=== PATIENT | female | born 1960 | race Caucasian/White ===

== ENCOUNTER → 2016-07-18 | Outpatient (CLI) | payer OTHER ==
[~2016-07-18] MED LIST: AMIT25TA PO; DIAZ5TAB4 PO; FLUT10.6 IH; GUAI1TAB PO; HYDR-2666 PO; HYDR-2672 PO; IOHEXOL 180 MG/ML 10 ML VIAL. ONE; LOSA50TA6 PO; OXYC-250 PO; OXYC15TA PO; OXYC15TA60 PO; OXYC20TA PO; OXYC20TA34 PO; PROM25TA10 PO; VENTOLIN HFA18 GM IH; methylPREDNISolone ACETATE 40 MG/ML VIAL. ONE; methylPREDNISolone ACETATE 80 MG/ML VIAL. ONE
--- NOTE | 2016-07-18 15:15 | PAIN ---
DATE OF SERVICE: 07/18/2016 PROGRESS NOTE DIAGNOSES: Cervical radiculopathy with cervicalgia and myofascial pain. HISTORY OF PRESENT ILLNESS: The patient is a 56-year-old female who returns for followup status post initial evaluation and medication management, trigger point injections on her last visit and is scheduled for a cervical epidural steroid injection today with significant pain, radiculopathy in the left upper extremity. The patient reports it is still a constant aching pain. She has had a better month as we had added some extended release oxycodone with the immediate release and reports this is doing much better on a day to day basis, about 75%-80% improvement and with no side effects. The patient reports still significant pain in the base of the neck, left shoulder, left upper extremity as it was previously. The patient reports it is constant, aching and dull with shooting pain as well. The patient reports no new motor or sensory deficits, no new bowel or bladder incontinence or other complaints. The patient's old chart was reviewed as her current medication regimen updated. Current review of systems updated today as well. PHYSICAL EXAMINATION: VITAL SIGNS: Today, the patient's blood pressure is 139/97, pulse 87, respirations 16, temperature 97.9 degrees Fahrenheit. Height is 5 feet 2 inches and weighs 133 pounds. GENERAL: The patient is awake, alert, oriented, appropriate, very pleasant demeanor. HEENT: Shows normocephalic, atraumatic. Extraocular movements are intact and symmetrical. Oral cavity shows mucous membranes are moist and pink. NECK: Shows anterior throat supple. Swallow reflex is symmetrical. CHEST: Shows normal on inspection. Breath sounds are clear to auscultation bilaterally. HEART: Shows S1 and S2 clear. BACK: Shows posterior cervical musculature with some moderate tenderness in the inferior aspect of the cervical paraspinous muscles without significant amount of trigger point regions as on previous exam in the rhomboids and cervical distribution of the paraspinous muscles as well as the trapezius, but very tender with palpation, more on the left than the right, but appears symmetrical. The patient has good rotation and motion of the cervical spine with some guarding with left lateral rotation and extension, but not with forward flexion. EXTREMITIES: The patient's upper extremities show deep tendon reflexes at 2+ in the biceps and triceps tendons. Motor exam is strong with 5/5 nicu rn strength and approximately 4/5 with left bicep and tricep flexion with 5/5 on the right. PLAN: Options were discussed with the patient. We will proceed with a cervical epidural steroid injection today. It is the first in this series with fluoroscopic guidance. Risks were again discussed including, but not limited to bleeding, infection, possibility of epidural hematoma and subsequent neurological compromise, dural puncture, headaches, spinal cord and/or nerve damage, side effects of steroid medication and poor results regarding pain control. The patient understands and wished to proceed. The patient will return to clinic in approximately 2 weeks for followup. She was counseled on return appointment, activity level and side effects to be aware of. DIAGNOSES: Cervical radiculopathy with cervicalgia. PROCEDURE: Cervical epidural steroid injection at C6-C7 level in translaminar approach using fluoroscopic guidance under sterile prep and drape with local anesthesia. MEDICATIONS INJECTED: Depo-Medrol 120 mg plus 5 mL of preservative-free normal saline and 2 mL of Isovue for contrast. CONDITION AT DISCHARGE: Stable. The patient tolerated procedure well, had no complications. CARL CHAPARRO MD DR: JOSEPH/kayla JOB#: [id number] / [id number]
== END | disposition home or self-care (01) ==
LOC: PNCL 07:29
PROVIDERS: ATTEND Anesthesiology
DX: M54.12 Radiculopathy, cervical region (principal)
CPT/HCPCS: 62321; 62323; 62325; J1030; J1040

== ENCOUNTER → 2016-09-05 | Outpatient (CLI) | payer OTHER ==
[~2016-09-05] MED LIST changes: -IOHEXOL 180 MG/ML 10 ML VIAL. ONE; -methylPREDNISolone ACETATE 40 MG/ML VIAL. ONE; -methylPREDNISolone ACETATE 80 MG/ML VIAL. ONE
--- NOTE | 2016-09-06 01:23 | PAIN ---
DATE OF SERVICE: 09/05/2016 PROGRESS NOTE DIAGNOSES: Cervical radiculopathy with cervicalgia and myofascial pain. HISTORY OF PRESENT ILLNESS: The patient is a 56-year-old female who returns for followup status post cervical epidural steroid injection x 1 on 07/18/2016. The patient reports she did very well, about 80% improvement after the injection. This has lasted until the last week or so for almost 7 weeks with the decrease in pain in the base of the neck and left upper extremity. The patient reports the pain is returning now in the left arm with tingling and numbness radiating into the posterior aspect of the triceps, also into the forearm, mostly in the posterior aspect, but also some in the medial aspect, into the fourth and fifth fingers with tingling on the left hand. The patient reports it is becoming more noticeable with daily activities, changing clothes, raising her hand above her head and using the upper extremities, any repetitive motions, but does not awaken her from sleep and feels that it is just beginning to return in a gradual fashion. The patient reports as a 2 on a scale of 10 currently, but has had migraine headaches, which have become more frequent and is a constant aching pain now as well. The patient reports no loss of motor function, but again some fatigability with the left upper extremity as the radicular pain returns. PHYSICAL EXAMINATION: VITAL SIGNS: The patient's blood pressure is 132/85, pulse 87, respirations 18, temperature 97.9 degrees Fahrenheit. Height is 5 feet 2 inches and weighs 135 pounds. GENERAL: She is awake, alert, oriented, appropriate, very pleasant demeanor. HEENT: Shows normocephalic, atraumatic. Extraocular movements are intact and symmetrical. Oral cavity shows mucous membranes are moist and pink. Dentition is intact. NECK: Shows anterior throat supple without palpable lymphadenopathy noted. Swallow reflex is symmetrical. CHEST: Shows normal on inspection. Breath sounds are clear to auscultation bilaterally. HEART: Shows S1 and S2 clear. No murmurs auscultated. ABDOMEN: Soft, nontender, and nondistended. No palpable organomegaly is noted. No rebound or guarding demonstrated. BACK: The patient's back shows spine grossly in midline. Neck shows cervical paraspinous musculature moderately tender with palpation in the inferior aspect of the cervical paraspinous muscles as well as superomedial and lateral trapezius, more on the left than the right, but appears symmetrical without evidence of atrophy, hypertrophy, no trigger points, no radiation of pain. The patient shows good rotation and motion of cervical spine, both laterally greater than 45 degrees. There is slight guarding with left lateral rotation and extension, but not with forward flexion. EXTREMITIES: Upper extremities show deep tendon reflexes 1+ in the biceps and triceps tendons. Motor exam is 5/5 with utility spray operator strength on the right and 4/5 on the left bicep and tricep flexion, 4/5 on the left and 5/5 on the right as well. Peripheral pulses are 2+ in radial distribution. No peripheral edema is noted. PLAN: Options were discussed with the patient. The patient's old chart was reviewed as her current medication regimen and updated. Current review of systems updated today as well. We will preauthorize the patient for a second cervical epidural steroid injection as she did very well with the first one, with the pain returning now in a radicular fashion in her left arm. The patient will return to clinic in approximately one week. We will plan on cervical epidural steroid injection #2 at that time. The patient was also given refill prescription for oxycodone extended release and immediate relief, we will decrease immediately from 10 mg to 7.5 mg as we are going to slowly wean her down off of the medications. She has been increasing her exercise and activity at home. I encouraged her to keep this up as well as stretching and strengthening exercises with the neck and shoulders. CARL CHAPARRO MD DR: JOSEPH/kayla JOB#: [id number] / [id number]
== END | disposition home or self-care (01) ==
LOC: PNCL 07:28
PROVIDERS: ATTEND Anesthesiology
DX: M54.12 Radiculopathy, cervical region (principal); M79.1 Myalgia
CPT/HCPCS: 99212

== ENCOUNTER → 2016-12-25 | Outpatient (CLI) | payer OTHER ==
[~2016-12-25] MED LIST changes: -HYDR-2666 PO; -HYDR-2672 PO; +HYDR-2758 PO; +HYDR-2766 PO; +IOHEXOL 180 MG/ML 10 ML VIAL. ONE; -OXYC-250 PO; +OXYC-328 PO; +methylPREDNISolone ACETATE 40 MG/ML VIAL. ONE; +methylPREDNISolone ACETATE 80 MG/ML VIAL. ONE
--- NOTE | 2016-12-25 09:17 | PN ---
DATE: 12/25/2016 PROGRESS NOTE FOR PAIN CLINIC DIAGNOSES: 1. Cervical radiculopathy with cervicalgia. 2. Myofascial pain. HISTORY OF PRESENT ILLNESS: The patient a 56-year-old female who returns for followup status post cervical epidural steroid injection, her last injection in July, last seen in August of this year. The patient had preauthorization for additional injections and that. Since that time we had been in contact with her on the phone several times, had her returned today. The patient reports a significant pain in the base of the neck, left shoulder, left upper extremity, causing some headaches as well in the left side of the head, rates at 8 on a scale of 10, it is worse at 5 on a scale of 10 at the least. The patient reports it awakens her from sleep several times at night sleeping about 4 hours a night at the time. The patient reports her headaches have become worse, is decreasing her mood as well. The patient reports no new motor or sensory deficits, no new bowel or bladder incontinence or other complaints, but still significant pain in the base of the neck, left shoulder, left upper extremity as noted, a stabbing pain, shooting, tight, sharp and constant as noted. PHYSICAL EXAMINATION: VITAL SIGNS: Today, the patient's blood pressure is 149/92, pulse 98, respirations 18, temperature 98.4 degrees Fahrenheit, height is 5 feet 2 inches, weight is 138 pounds. GENERAL: The patient is awake, alert, oriented, appropriate, has a very pleasant demeanor. HEENT: Head shows normocephalic, atraumatic. Extraocular movements are intact and symmetrical. Oral cavity shows mucous membranes moist and pink. Dentition is intact. NECK: Shows anterior throat supple without palpable lymphadenopathy noted. Swallow reflex is symmetrical. CHEST: Shows normal on inspection. Breath sounds are clear to auscultation bilaterally. HEART: Shows S1 and S2 clear. No murmurs auscultated. ABDOMEN: Soft, nontender, nondistended. No palpable organomegaly. There is no rebound or guarding demonstrated. BACK: Shows spine grossly in the midline. Neck shows some significant tenderness in the left greater than right cervical paraspinous musculature in the inferior aspect as well as the superior, medial and lateral trapezius especially on the left with several trigger point areas of very firm rope-like tender musculature bilaterally, but again more tender on the left than the right side. The patient does show good rotational motion of the cervical spine both laterally as well as extension and flexion, but is somewhat guarded with extension. EXTREMITIES: Upper extremity showed deep tendon reflexes at 1+ in the biceps and triceps tendons. Motor exam is strong with approximately 4 on a scale of 5, left analog ic design architect and 5/5 on the right. Options were discussed with the patient and the patient's old chart was reviewed as her current medication regimen updated. Current review of systems updated today as well. We will proceed with a second in the series cervical epidural steroid injection using C-arm fluoroscopic guidance. Risks were again discussed including, but not limited to bleeding, infection, possibility of epidural hematoma, subsequent neurologic compromise, dural puncture, headaches, spinal cord and/or nerve damage, side effects of steroid medication and poor results regarding pain control. The patient understands and wishes to proceed. The patient will return to the clinic in approximately 2 weeks for followup, was counseled on return appointment, activity level and side effects to be aware of. The patient was given refill prescription for hydrocodone at 10 mg that she reports she is not using the OxyContin anymore and the hydrocodone is actually doing better than the oxycodone was as we switched her from that last month. The patient was given instructions as well as side effects to be aware of with the medication. We will follow up as scheduled. DIAGNOSIS: Cervical radiculopathy with cervicalgia. PROCEDURE: Cervical epidural steroid injection in translaminar approach at the C6-C7 level using C-arm fluoroscopic guidance under sterile prep and drape using local anesthetic. Medications injected is a total of 120 mg Depo-Medrol plus 5 mL of preservative-free normal saline and 2 mL of Isovue for contrast. CONDITION AT DISCHARGE: Stable. The patient tolerated the procedure well, had no complications. CARL CHAPARRO MD DR: JOSEPH/kayla JOB#: [id number] / [id number]
== END | disposition home or self-care (01) ==
LOC: PNCL 07:31
PROVIDERS: ATTEND Anesthesiology
DX: M54.12 Radiculopathy, cervical region (principal)
CPT/HCPCS: 62321; J1030; J1040

== ENCOUNTER → 2017-02-21 | Outpatient (CLI) | payer OTHER ==
[~2017-02-21] MED LIST changes: +BUPIVACAINE MPF 0.25% 10 ML VIAL. ONE; -IOHEXOL 180 MG/ML 10 ML VIAL. ONE; -methylPREDNISolone ACETATE 80 MG/ML VIAL. ONE
--- NOTE | 2017-02-21 09:08 | PAIN ---
DATE OF SERVICE: 02/21/2017 PROGRESS NOTE FOR PAIN CLINIC DIAGNOSES: Cervical radiculopathy, cervicalgia and myofascial pain. HISTORY OF PRESENT ILLNESS: The patient is a 57-year-old female who returns for followup status post cervical epidural steroid injection x 2. The patient reports significant decrease in pain especially with the left arm doing much better. The patient reports there is 75% improvement overall, sleeping better at night, increased her activity with greater ease and comfort, using her left upper extremity with greater ease and comfort as well. The patient's chief complaint is pain in the base of the neck and shoulders, somewhat worse on the left than the right, but without as much radiation to the left upper extremity. The patient reports no new motor or sensory deficits, no new bowel or bladder incontinence or other complaints. The patient reports it awakens her from sleep occasionally at night. She states that for the time she can reposition and get back to sleep and get the neck, shoulder feeling better, but it is becoming more and more noticeable and tight and stiff feeling. The patient reports it is a 7 on a scale of 10 at its worst, 2 on a scale of 10 at its least and averages about a 5 and it is a 5 today. The patient reports no new motor or sensory deficits or other complaints. PHYSICAL EXAMINATION: VITAL SIGNS: The patient's blood pressure is 142/95, pulse 93, respirations 20, temperature 98.3 degrees Fahrenheit, height is 5 feet 2 inches, weight is 139 pounds. GENERAL: The patient is awake, alert, oriented, appropriate, very pleasant demeanor. HEENT: Head shows normocephalic, atraumatic. Extraocular movements are intact, symmetrical. Oral cavity, mucous membranes are moist and pink. Dentition intact. NECK: Shows anterior throat supple without palpable lymphadenopathy noted. Swallow reflex is symmetrical. CHEST: Shows normal on inspection. Breath sounds are clear to auscultation bilaterally. HEART: Shows S1 and S2 clear. No murmurs auscultated. ABDOMEN: Soft, nontender, nondistended. BACK: Shows spine grossly in the midline. Cervical paraspinous muscle shows some moderate tenderness with significant very firm rope-like musculature in the superior, middle and lower distribution. Cervical paraspinous muscles, somewhat more tender on the left than the right, very easily palpable, firm rope-like musculature consistent with trigger point areas of musculature without specific radiation. The patient shows good rotational motion of cervical spine, but some limited extension secondary to pain. Forward flexion is performed fully, but very slowly and deliberately with some guarding with right and left lateral rotation as well. EXTREMITIES: Upper extremities show deep tendon reflexes 1+ in the biceps and triceps tendons. Motor exam is strong with associate software developer strength rated at 5/5 as is biceps and triceps flexion and equal bilaterally. Options were discussed with the patient and the patient's old chart was reviewed as her current medication regimen updated. Current review of systems updated today as well and we will proceed with the trigger point injections of the bilateral cervical paraspinous musculature as well as the trapezius musculature and the upper thoracic paraspinous musculature bilaterally. Risks were again discussed including, but not limited to bleeding, infection, possibility of intravascular injection sequelae, spread of local anesthetic and numbness, side effects of steroid medication and poor results regarding pain control. The patient understands and wishes to proceed. The patient will return to the clinic in approximately 2 weeks for followup, was counseled on return appointment, activity level and side effects to be aware of. The patient is also given refill prescription for hydrocodone. She is doing very well on this as well without side effects, with instructions on side effects to be aware of regarding the medications. DIAGNOSIS: Cervicalgia with myofascial pain. PROCEDURE: Trigger point injections, bilateral cervical paraspinous musculature, bilateral trapezius musculature, bilateral thoracic paraspinous musculature using local anesthetic under sterile prep and drape. MEDICATIONS INJECTED: A total of 40 mg Depo-Medrol plus total of 8 mL of 0.25% bupivacaine after negative aspiration at each injection. CONDITION AT DISCHARGE: Stable. The patient tolerated the procedure well and had no complications. CARL CHAPARRO MD DR: JOSEPH/kayla JOB#: [id number] / [id number]
== END | disposition home or self-care (01) ==
LOC: PNCL 07:28
PROVIDERS: ATTEND Anesthesiology
DX: M79.1 Myalgia (principal)
CPT/HCPCS: 20553; J1030; J3490

== ENCOUNTER → 2017-04-24 | Outpatient (CLI) | payer OTHER ==
[~2017-04-24] MED LIST changes: -BUPIVACAINE MPF 0.25% 10 ML VIAL. ONE; +IOHEXOL 180 MG/ML 10 ML VIAL. ONE; +methylPREDNISolone ACETATE 80 MG/ML VIAL. ONE
--- NOTE | 2017-04-24 09:11 | PAIN ---
DATE OF SERVICE: 04/24/2017 DIAGNOSES: Cervical radiculopathy, cervicalgia and myofacial pain. HISTORY OF PRESENT ILLNESS: The patient is a 57-year-old female who returns for followup status post cervical epidural steroid injection as well as trigger point injections, most recently in December of this year for cervical level injection with about 75% improvement. The pain has been returning now in the base of the neck and into the left greater and right upper extremity. The patient reports it was present in both extremities, left was doing much better for quite a while, but it is beginning to increase bilaterally, a little worse on the left side at this time with radiation to the posterior deltoid, into the trapezius and into the anterior and posterior aspect of the forearm with some minor amount of tingling in the hands. The patient reports this awakens her from sleep occasionally, but not every night. The patient reports no new motor or sensory deficits, no loss of motor function, but significant fatigability of the upper extremity as well as significant pain in the neck with rotation and motion, even daily activities such as putting on clothing, raising her arm over her head and driving a car. The patient reports no new motor or sensory deficits, rates her pain as a 9 on a scale of 10 at its worst, is average about a 6 and is currently a 4 on a scale 10 today. The patient reports no other complaints. PHYSICAL EXAMINATION: VITAL SIGNS: The patient's blood pressure 148/89, pulse 90, respirations 18, temperature 98.0 degrees Fahrenheit, height is 5 feet 1 inch, weight is 146 pounds. GENERAL: The patient is awake, alert, oriented, appropriate, very pleasant demeanor. HEENT: Shows normocephalic, atraumatic. Extraocular movements are intact and symmetrical. Oral cavity shows mucous membranes moist and pink. Dentition is intact. NECK: Shows anterior throat supple. No palpable lymphadenopathy is noted. Swallow reflex is symmetrical. CHEST: Shows normal on inspection. Breath sounds clear to auscultation bilaterally. HEART: Shows S1 and S2 clear. No murmurs auscultated. ABDOMEN: Soft, nontender, nondistended. BACK: Shows spine grossly midline. Cervical lordotic curvature is intact. Paraspinous musculature shows symmetrical on inspection with palpation shows some diffuse tenderness in the middle and lower paraspinous musculature in the cervical distribution, slightly more on the left than the right, but also into the superior medial trapezius, more tender on the left side than the right, but symmetrical without evidence of atrophy, hypertrophy without asymmetry. The patient shows good rotation and motion of cervical spine, slightly guarded with extension as well as left lateral rotation, but not with right, but she performs both 45 degrees and further with lateral rotation. Full forward flexion is performed without difficulty. EXTREMITIES: Upper extremities show deep tendon reflexes at 1+ in the biceps and triceps tendons. Motor exam is strong with toll repairer central office strength rated at 5/5, as is the biceps and triceps flexion. Peripheral pulses are 2+ radial distribution. No peripheral edema is noted. Options were discussed with the patient. The patient's old chart was reviewed, as her current medication regimen and updated. Current review of systems is updated today as well and we will proceed with a cervical epidural steroid injection today with fluoroscopic guidance. Risks were again discussed including, but not limited to bleeding, infection, possibility of epidural hematoma, subsequent neurologic compromise, dural puncture, headaches, spinal cord and/or nerve damage, side effects of steroid medication and poor results regarding pain control. The patient understands and wishes to proceed. The patient will return to clinic in approximately 2 weeks for followup, was counseled on return appointment, activity level and side effects to be aware of. DIAGNOSIS: Cervical radiculopathy with cervicalgia. PROCEDURE: Cervical epidural steroid injection, translaminar approach at the C6-C7 level using C-arm fluoroscopic guidance under sterile prep and drape using local anesthetic. Medication injected is a total of 120 mg of Depo-Medrol plus 5 mL of preservative-free normal saline, 2 mL Isovue for contrast. CONDITION AT DISCHARGE: Stable. The patient tolerated the procedure well, had no complications. CARL CHAPARRO MD DR: JOSEPH/kayla JOB#: [id number] / [id number]
== END | disposition home or self-care (01) ==
LOC: PNCL 07:31
PROVIDERS: ATTEND Anesthesiology
DX: M54.12 Radiculopathy, cervical region (principal)
CPT/HCPCS: 62321; J1030; J1040

== ENCOUNTER → 2017-08-08 | Outpatient (CLI) | payer OTHER ==
[~2017-08-08] MED LIST changes: -AMIT25TA PO; +BUPIVACAINE MPF 0.25% 10 ML VIAL.; -DIAZ5TAB4 PO; -FLUT10.6 IH; -GUAI1TAB PO; -HYDR-2758 PO; -HYDR-2766 PO; -IOHEXOL 180 MG/ML 10 ML VIAL. ONE; -LOSA50TA6 PO; -OXYC-328 PO; -OXYC15TA PO; -OXYC15TA60 PO; -OXYC20TA PO; -OXYC20TA34 PO; -PROM25TA10 PO; -VENTOLIN HFA18 GM IH; +methylPREDNISolone ACETATE 40 MG/ML VIAL.; -methylPREDNISolone ACETATE 40 MG/ML VIAL. ONE; -methylPREDNISolone ACETATE 80 MG/ML VIAL. ONE
== END | disposition home or self-care (01) ==
LOC: PNCL 08:18
DX: M79.1 Myalgia (principal); Z98.890 Other specified postprocedural states; Z79.891 Long term (current) use of opiate analgesic
CPT/HCPCS: 20553; J1030; J3490

== ENCOUNTER → 2017-09-02 | Outpatient (CLI) | payer OTHER ==
[~2017-09-02] MED LIST changes: -BUPIVACAINE MPF 0.25% 10 ML VIAL.; +IOHEXOL 180 MG/ML 10 ML VIAL.; +methylPREDNISolone ACETATE 80 MG/ML VIAL.
== END | disposition home or self-care (01) ==
LOC: PNCL 07:28
DX: M50.123 Cervical disc disorder at C6-C7 level with radiculopathy (principal)
CPT/HCPCS: 62321; J1030; J1040; Q9965

== ENCOUNTER → 2017-10-15 | Outpatient (CLI) | payer OTHER | END | disposition home or self-care (01) | LOC: PNCL 07:31 | DX: M50.10 Cervical disc disorder with radiculopathy, unspecified cervical region (principal); M47.892 Other spondylosis, cervical region; M79.1 Myalgia | CPT/HCPCS: 99212 ==

== ENCOUNTER → 2017-11-04 | Outpatient (CLI) | payer OTHER | END | disposition home or self-care (01) | LOC: PNCL 07:34 | DX: M50.123 Cervical disc disorder at C6-C7 level with radiculopathy (principal); M47.22 Other spondylosis with radiculopathy, cervical region; M79.1 Myalgia | CPT/HCPCS: 62321; J1030; J1040; Q9965 ==

== ENCOUNTER → 2018-01-14 | Outpatient (CLI) | payer OTHER ==
[~2018-01-14] MED LIST changes: +BUPIVACAINE MPF 0.25% 10 ML VIAL.; -IOHEXOL 180 MG/ML 10 ML VIAL.; -methylPREDNISolone ACETATE 80 MG/ML VIAL.
== END | disposition home or self-care (01) ==
LOC: PNCL 07:31
DX: M79.1 Myalgia (principal); M50.10 Cervical disc disorder with radiculopathy, unspecified cervical region; M47.22 Other spondylosis with radiculopathy, cervical region
CPT/HCPCS: 20553; J1030; J3490

== ENCOUNTER → 2018-03-25 | Outpatient (CLI) | payer OTHER ==
[~2018-03-25] MED LIST changes: +AMIT25TA PO; -BUPIVACAINE MPF 0.25% 10 ML VIAL.; +DIAZ5TAB4 PO; +FLUT10.6 IH; +GUAI1TAB PO; +HYDR-2758 PO; +HYDR-2762 PO; +HYDR-2766 PO; +IOHEXOL 180 MG/ML 10 ML VIAL. ONE; +LIDOCAINE 2% PF 2ML VIAL. ONE; +LOSA50TA7 PO; +OXYC-328 PO; +OXYC15TA PO; +OXYC15TA60 PO; +OXYC20TA PO; +OXYC20TA34 PO; +PROM25TA10 PO; +VENTOLIN HFA18 GM IH; -methylPREDNISolone ACETATE 40 MG/ML VIAL.; +methylPREDNISolone ACETATE 40 MG/ML VIAL. ONE; +methylPREDNISolone ACETATE 80 MG/ML VIAL. ONE
--- NOTE | 2018-03-25 11:34 | PAIN ---
DATE OF SERVICE: 03/25/2018 PROGRESS NOTE FOR PAIN CLINIC DIAGNOSES: 1. Cervical radiculopathy with cervical degenerative disk disease and cervical spondylosis with cervicalgia. 2. Myofascial pain. HISTORY OF PRESENT ILLNESS: The patient is a 58-year-old female who returns for followup status post cervical epidural steroid injection x 1 on November 04 as well as trigger point injections on her last visit. The patient reports that she did very well with this, about 70% improvement. The shot in October helped until about the last 2 weeks or so. The patient reports that she was increasing her activity with greater ease and comfort, doing work activities with greater ease and sleeping better at night. The patient reports the pain returned down the base of the neck, left shoulder, left arm and upper extremity and into the elbow and some tingling in the forearm and hand as well on the left side. The patient reports the pain is 8 on a scale of 10 at its worst, 6 on average, 4 at its least and is a 6 today. The patient reports it is sharp, tight, shooting, becoming more constant, radiating into the left upper extremity, worse with repetitive motion of the left arm, lifting items or typing and even driving a car using her left hand. The patient reports no new motor or sensory deficits and no new changes. PHYSICAL EXAMINATION: VITAL SIGNS: The patient's blood pressure is 160/95, pulse 84, respirations are 20, temperature 97.0 degrees Fahrenheit, height is 5 feet 2 inches and weight is 145 pounds. GENERAL: The patient is awake, alert, oriented, appropriate and very pleasant demeanor. HEENT: Head shows normocephalic and atraumatic. Extraocular movements are intact and symmetrical. Oral cavity: Mucous membranes moist and pink. Dentition is intact. NECK: Shows anterior throat supple without palpable lymphadenopathy noted. Swallow reflex symmetrical. CHEST: Shows normal on inspection. Breath sounds clear to auscultation bilaterally. HEART: Shows S1 and S2 clear. No murmurs auscultated. ABDOMEN: Soft, nontender and nondistended. No palpable organomegaly is noted. No rebound or guarding demonstrated. BACK: Shows spine grossly in the midline. Cervical paraspinous muscle shows symmetrical on inspection, with palpation shows some moderate tenderness in the inferior aspect of the cervical paraspinals on the left compared to the right as well as some increased tenderness with palpation on the left superior medial trapezius and into the lateral trapezius. EXTREMITIES: The patient's upper extremities show deep tendon reflexes at 2+ in the biceps and triceps tendons. Motor exam is approximately 4 on a scale 5 with left crown wheel assembler and 5/5 on the right. Peripheral pulses are 2+ radial distribution. No peripheral edema is noted bilaterally. Shoulder shrug is strong and intact with some minor pain with resistance on the left side but without loss of strength. Options were discussed with the patient. The patient's old chart reviewed as well as her current medication regimen updated. Current review of systems is updated today as well. We will proceed with a second in a series of cervical epidural steroid injection today with fluoroscopic guidance. Risks were again discussed including but not limited to bleeding, infection, possibility of epidural hematoma and subsequent neurological compromise, dural puncture, headaches, spinal cord and/or nerve damage, side effects of steroid medication and poor results regarding pain control. The patient understands and wished to proceed. The patient to return to the clinic in approximately 2 weeks for followup, was counseled as to return appointment, activity level and side effects to be aware of. We also discussed the patient's medication management. She is taking oxycodone, which does not seem to be as helpful as hydrocodone, changed back to hydrocodone 10 up to 3 tablets a day. The patient was given instructions as well as side effects to be aware of with the medication. She has had appropriate K-TRACS reporting as well as appropriate urinalysis to date. We will refill this for 1 month prescription. The patient will follow up in approximately 2 weeks as scheduled. DIAGNOSES: Cervical radiculopathy with cervical degenerative disk disease, cervical spondylosis and cervicalgia. PROCEDURE: Cervical epidural steroid injection, translaminar approach, C6-C7 level using C-arm fluoroscopic guidance under sterile prep and drape using local anesthetic. MEDICATION INJECTED: A total of 120 mg Depo-Medrol plus 5 mL of preservative-free normal saline and 2 mL of Isovue for contrast. CONDITION AT DISCHARGE: Stable. The patient tolerated the procedure well and had no complications. CARL CHAPARRO MD DR: JOSEPH/kayla JOB#: [id number] / [id number]
== END | disposition home or self-care (01) ==
LOC: PNCL 07:34
PROVIDERS: ATTEND Anesthesiology
DX: M50.123 Cervical disc disorder at C6-C7 level with radiculopathy (principal); M47.22 Other spondylosis with radiculopathy, cervical region; Z79.899 Other long term (current) drug therapy
CPT/HCPCS: 62321; J1030; J1040; J2001; Q9965; 62323

== ENCOUNTER → 2018-04-29 | Outpatient (CLI) | payer OTHER ==
[~2018-04-29] MED LIST changes: -IOHEXOL 180 MG/ML 10 ML VIAL. ONE; -LIDOCAINE 2% PF 2ML VIAL. ONE; -methylPREDNISolone ACETATE 40 MG/ML VIAL. ONE; -methylPREDNISolone ACETATE 80 MG/ML VIAL. ONE
--- NOTE | 2018-04-29 12:27 | PAIN ---
DATE OF SERVICE: 04/29/2018 DIAGNOSES: Cervical radiculopathy with cervical degenerative disk disease, cervical spondylosis and cervicalgia. HISTORY OF PRESENT ILLNESS: The patient is a 58-year-old female who returns for followup status post cervical epidural steroid injection #2 on 03/25/2018. First one was in October of this year. The patient did very well after each injection with about a 75% improvement each time. The patient reports that the pain is more like 80% improvement at this time in the neck and left shoulder and upper extremity. The patient reports the pain is beginning to return; however, she is noticing some radiating pain, radiating to the left shoulder and arm into the anterior biceps, lateral deltoid, medial forearm as well as into the hand, especially in the thumb on the left side. The patient reports it is intermittent in the hand and thumb, but it is becoming more frequent with activity. The patient reports it is dull, tingling, shooting, sharp sometimes, rates it a 5 on a scale of 10 at its worst, 3 on average, 2 at its least and is a 3 today. The patient reports it is better with activity. She has been increasing her activity with greater ease and comfort, doing work activities with better ease and comfort as well, but still significant pain beginning to return in a radicular fashion in the left arm. The patient reports she still does not sleep well, but occasionally awakens her from sleep if she is lying on her left side. Her migraine headaches have been much less in frequency as well since her last injection. The patient reports no new motor or sensory deficits, no new changes. PHYSICAL EXAMINATION: VITAL SIGNS: The patient's blood pressure 155/85, pulse 80, respirations 16, temperature 98.3 degrees Fahrenheit, height is 5 feet 2 inches, weighs 147 pounds. GENERAL: The patient is awake, alert, oriented, appropriate, very pleasant demeanor. HEENT: Head shows normocephalic, atraumatic. Extraocular movements intact and symmetrical. Oral cavity: Mucous membranes moist and pink. Dentition is intact. NECK: Shows anterior throat supple without palpable lymphadenopathy noted. Swallow reflex symmetrical. CHEST: Shows normal on inspection. Breath sounds clear to auscultation bilaterally. HEART: Shows S1, S2 clear. No murmurs auscultated. ABDOMEN: Soft, nontender, nondistended. No palpable organomegaly is noted. No rebound or guarding demonstrated. BACK: Shows spine grossly in the midline. Cervical paraspinous muscle shows cervical lordotic curvature, normal in appearance. Paraspinous musculature is symmetrical on inspection, with palpation shows some moderate tenderness in the inferior aspect of the cervical paraspinous muscles on the left compared to the right, but symmetrical. Also into the left superior medial trapezius compared to the right side as well, moderate tenderness with palpation, but only moderately so without trigger points. EXTREMITIES: The patient's upper extremities show deep tendon reflexes at 2+ in the biceps, triceps tendons. Motor exam is approximately 4 on a scale of 5 with left plant utilities engineer strength and 5/5 on the right. Peripheral pulses are 2+ radial distribution. No peripheral edema is noted. Options were discussed with the patient. The patient's old chart was reviewed, her current regimen updated. Current review of systems updated today as well. We will preauthorize the patient for a third in the series of cervical epidural steroid injection as she has done very well with the first two with 80% improvement for about the 5 weeks since her last injection, with pain beginning to return now, but only moderately so in a radicular fashion at C6-C7 dermatome on the left side as described. The patient will maintain exercises, stretching and strengthening with her left arm and shoulder as well as her neck as she has been doing and will have her return in approximately 2 weeks and plan on cervical epidural steroid injection at that time. CARL CHAPARRO MD DR: JOSEPH/kayla JOB#: [id number] / [id number]
== END | disposition home or self-care (01) ==
LOC: PNCL 07:33
PROVIDERS: ATTEND Anesthesiology
DX: M50.123 Cervical disc disorder at C6-C7 level with radiculopathy (principal); M47.22 Other spondylosis with radiculopathy, cervical region
CPT/HCPCS: G0463

== ENCOUNTER → 2018-07-28 | Outpatient (CLI) | payer OTHER ==
[~2018-07-28] MED LIST changes: -HYDR-2758 PO; +HYDR-2761 PO; -HYDR-2762 PO; +HYDR-2765 PO; -HYDR-2766 PO; +HYDR-2769 PO; +LOSA-73 PO; -LOSA50TA7 PO; -OXYC-328 PO; -OXYC15TA60 PO; +OXYC15TA61 PO; +OXYC1TAB22 PO
--- NOTE | 2018-07-28 09:51 | PAIN ---
DATE OF SERVICE: 07/28/2018 DIAGNOSES: Cervical radiculopathy with cervical degenerative disk disease, cervical spondylosis and cervicalgia. HISTORY OF PRESENT ILLNESS: The patient is a 58-year-old female who returns for followup status post cervical epidural steroid injections, most recently was in 03/2018. The patient returns today, complaining of significant pain in the base of the neck and upper extremities and shoulders, more on the left than the right, but has significant cold, is coughing today. Reports she feels febrile at home for about the past week or so. The patient reports her pain, however, is a 6 on a scale of 10 at its worst, 4 on average, 3 at its least and is a 4 today. The pain is in the neck, left shoulder, left upper extremity, radiating to the left arm and posteriorly into the trapezius and into the forearm posteriorly as well as the lateral aspect of the arm. It is sharp, tingling, burning, constant, radiating. The patient reports no new motor or sensory deficits, but still significant pain with repetitive motion, reaching above her head with her left arm and holding items with weightbearing. The patient reports it wakes her from sleep about every 4 hours as well. The patient reports no new motor or sensory deficits. No other changes. PHYSICAL EXAMINATION: VITAL SIGNS: The patient's blood pressure 171/99, pulse 91, respirations are 18, temperature 98.2 degrees Fahrenheit, height is 5 feet 2 inches, weighs 145 pounds. GENERAL: The patient is awake, alert, oriented, appropriate, very pleasant demeanor. HEENT: Shows normocephalic, atraumatic. Extraocular movements intact and symmetrical. Oral cavity: Mucous membranes are moist and pink. Dentition is intact. NECK: Shows anterior throat supple without palpable lymphadenopathy noted. Swallow reflex symmetrical. CHEST: Shows normal with inspection. Breath sounds clear to auscultation bilaterally. HEART: Shows S1, S2 clear. No murmurs auscultated. ABDOMEN: Soft, nontender, nondistended. No palpable organomegaly is noted. No rebound or guarding demonstrated. BACK: Shows spine grossly in the midline. Cervical lordotic curvature is maintained as is thoracic kyphotic curvature. Cervical paraspinous muscle shows symmetrical on inspection. On palpation, shows some moderate tenderness diffusely bilaterally in the middle and lower aspect of the left cervical paraspinous musculature, but without radiation, without atrophy or hypertrophy. Some moderate tenderness in the left trapezius and the medial superior aspect as well. The patient has good rotational motion, slight guarding with left lateral rotation as well as extension, but not with forward flexion or right lateral rotation. EXTREMITIES: Upper extremities show deep tendon reflexes 2+ in the biceps and triceps tendons. Motor exam is approximately 4 on a scale of 5 with left radiation control health physicist and 5/5 with right radiation control health physicist. Peripheral pulses are 2+ radial distribution. No peripheral edema is noted bilaterally. Options were discussed with the patient. The patient's old chart was reviewed, as her current medication regimen updated. Current review of systems updated today as well. We will hold on further procedures at this time as the patient is having some difficulty with upper respiratory infection. The patient is going to see her primary care physician after her visit today this morning. Once she is afebrile and upper respiratory symptoms have cleared up, we will discuss third cervical epidural steroid injection. The patient still has hydrocodone, which was filled earlier this month. She has taken it with instructions and side effects to be aware discussed. The patient had appropriate K-TRACS report, as well as appropriate urinalysis to date as well. We will have her follow up approximately 1 week potential for cervical epidural steroid injection at that time. CARL CHAPARRO MD DR: JOSEPH/kayla JOB#: [id number] / [id number]
== END | disposition home or self-care (01) ==
LOC: PNCL 07:39
PROVIDERS: ATTEND Anesthesiology
DX: M50.11 Cervical disc disorder with radiculopathy, high cervical region (principal); M47.22 Other spondylosis with radiculopathy, cervical region
CPT/HCPCS: G0463

== ENCOUNTER → 2018-08-21 | Outpatient (CLI) | payer OTHER ==
[~2018-08-21] MED LIST changes: +IOHEXOL 180 MG/ML 10 ML VIAL. ONE; +methylPREDNISolone ACETATE 40 MG/ML VIAL. ONE; +methylPREDNISolone ACETATE 80 MG/ML VIAL. ONE
--- NOTE | 2018-08-21 09:29 | PAIN ---
DATE OF SERVICE: 08/21/2018 DIAGNOSES: 1. Cervical radiculopathy with cervical degenerative disk disease. 2. Cervical spondylosis. 3. Cervicalgia. HISTORY OF PRESENT ILLNESS: The patient is a 58-year-old female who returns for followup status post previous cervical epidural steroid injection with very good results, most recently was in 03/25/2018. The patient did very well, about 80% improvement from this. The patient reports pain is increasing now; the patient's neck and shoulders, more on the left than the right. We had seen her about 1 month ago and she had a fever. We had had her come back today. She is feeling much better in that respect without any fevers, has been over cough for about 2-3 weeks now. The patient reports the pain is in the base of the neck and shoulders, left side greater than right; is noted radiating to the upper extremities, left biceps, left triceps and forearm, into the hand with some tingling, numbness. The patient reports the pain in the neck is aching and sharp; something tight, tingling, burning in the hand and the arms. The patient reports it is 6 on a scale 10 at its worst, 5 on average, 5 at its least and is 5 today. The patient reports no new motor or sensory deficits, no new changes. The patient reports it awakens her from sleep about every 3-4 hours, but she can easily reposition and get back to sleep. The patient reports no new motor or sensory deficits or other complaints. PHYSICAL EXAMINATION: VITAL SIGNS: The patient's blood pressure is 160/98, pulse 94, respirations 18, temperature 98.1 degrees Fahrenheit, height is 5 feet 1 inch, weight is 146 pounds. GENERAL: The patient is awake, alert, oriented, appropriate, very pleasant demeanor. HEENT: Head is normocephalic, atraumatic. Extraocular movements are intact and symmetrical. Oral cavity: Mucous membranes moist and pink. Dentition is intact. NECK: Shows anterior throat supple without palpable lymphadenopathy noted. Swallow reflex is symmetrical. CHEST: Shows normal on inspection. Breath sounds clear to auscultation bilaterally. HEART: Shows S1, S2 clear. No murmurs auscultated. ABDOMEN: Soft, nontender, nondistended. No palpable organomegaly is noted. BACK: Shows spine grossly in the midline. Cervical paraspinous muscle shows symmetrical on inspection; on palpation, it shows some moderate tenderness diffusely, but without radiation. The patient has good rotational motion of cervical spine, both laterally with some mild tenderness with extension, but not with forward flexion, good rotation past 45 degrees right and the left, however. EXTREMITIES: The patient's upper extremities show deep tendon reflexes 2+ in the biceps and triceps tendons. Motor exam is approximately 4 on a scale 5 on the left and 5/5 on the right with data virtualization consultant strength, bicep and tricep flexion. Peripheral pulses are 2+ radial distribution. No peripheral edema is noted bilaterally. ASSESSMENT AND PLAN: Options were discussed with the patient. The patient's old chart was reviewed as was his current medication regimen updated. Current review of systems updated today as well. We will proceed with a cervical epidural steroid injection first in this series today with fluoroscopic guidance. Risks were again discussed including, but not limited to bleeding, infection, possibility of epidural hematoma and subsequent neurological compromise, dural puncture headache, spinal cord and/or nerve damage, side effects of steroid medication and poor results regarding pain control. The patient understands and wished to proceed. The patient will return to clinic in approximately 2 weeks for followup; was counseled as to return appointment, activity level and side effects to be aware of. DIAGNOSES: 1. Cervical radiculopathy with cervical degenerative disk disease. 2. Cervical spondylosis. PROCEDURE: Cervical epidural steroid injection, translaminar approach C6-C7 level using C-arm fluoroscopic guidance under sterile prep and drape using local anesthetic. MEDICATION INJECTED: A total of 120 mg Depo-Medrol plus 5 mL of preservative-free normal saline and 2 mL of Isovue for contrast. CONDITION AT DISCHARGE: Stable. The patient tolerated the procedure well, had no complications. CARL CHAPARRO MD DR: JOSEPH/kayla JOB#: [id number] / [id number]
== END | disposition home or self-care (01) ==
LOC: PNCL 07:55
PROVIDERS: ATTEND Anesthesiology
DX: M50.123 Cervical disc disorder at C6-C7 level with radiculopathy (principal); M47.22 Other spondylosis with radiculopathy, cervical region
CPT/HCPCS: 62321; J1030; J1040; Q9965

== ENCOUNTER → 2018-09-17 | Outpatient (CLI) | payer OTHER ==
[~2018-09-17] MED LIST changes: +BUPIVACAINE MPF 0.25% 10 ML VIAL. ONE; -IOHEXOL 180 MG/ML 10 ML VIAL. ONE; -methylPREDNISolone ACETATE 80 MG/ML VIAL. ONE
--- NOTE | 2018-09-17 21:40 | PAIN ---
DATE OF SERVICE: 09/17/2018 DIAGNOSES: 1. Cervical radiculopathy with cervical degenerative disk disease, cervical spondylosis and cervicalgia. 2. Myofascial pain. HISTORY OF PRESENT ILLNESS: The patient is a 58-year-old female who returns for followup status post cervical epidural steroid injection x 1 on 08/21/2018. The patient did very well with this with about a 70% improvement, still with pain in the base of the neck and left upper extremity, but doing much better. The patient reports today there is tightness in the base of the left shoulder, upper back, mid back as well as into the neck causing some headaches on the left side with some increased spasticity and tightness in the left shoulder and neck. The patient reports it is sharp, tight, stabbing, shooting, sometimes radiating to the left arm, mostly in the neck and shoulder itself. The patient reports it is 2 on a scale of 10 at its worse, 2 on average, 2 at its least and is a 2 today. The patient reports it is worse with rotational motion of cervical spine with working using computer or reading, looking down for prolonged periods. The patient reports it has not been waking her from sleep recently, though. She is doing much better, sleeping about 8 hours a night without difficulty. The patient reports her left arm is feeling much better since her last injection, but again more spasticity and tightness in the left neck and shoulder. PHYSICAL EXAMINATION: VITAL SIGNS: Today, the patient's blood pressure 161/89, pulse 81, respirations 18, temperature 98.3 degrees Fahrenheit, height is 5 feet 1 inch, weight 142 pounds. GENERAL: The patient is awake, alert, oriented, appropriate, very pleasant demeanor. HEENT: Head shows normocephalic, atraumatic. Extraocular movements are intact and symmetrical. Oral cavity: Mucous membranes moist and pink. Dentition is intact. NECK: Shows anterior throat supple without palpable lymphadenopathy noted. Swallow reflex symmetrical. CHEST: Shows normal with inspection. Breath sounds clear to auscultation bilaterally. HEART: Shows S1, S2 clear. No murmurs auscultated. ABDOMEN: Soft, nontender, nondistended. No palpable organomegaly is noted. No rebound or guarding demonstrated. BACK: Shows spine grossly in the midline. Normal appearing thoracic kyphosis and lumbar lordotic curvature as well as cervical lordotic curvature. Cervical paraspinous muscle shows symmetrical on inspection and palpation shows some significant tenderness in the superior medial and lower aspect of the cervical paraspinous musculature on the left only with very firm rope-like musculature consistent with trigger point areas of muscle. This is true into the left trapezius with very firm rope-like musculature here as well, very tender, but without radiation into the rhomboid distribution in the thoracic paraspinous musculature on the left side only. Right side is supple without significant tenderness. The patient has good rotational motion of the cervical spine, both laterally as well as extension and flexion with some minor tenderness with extension and right far rotation past 45 degrees with pain on the left side with pulling sensation as well. The patient's upper extremities show deep tendon reflexes 2+ in the biceps, triceps tendons. Motor exam is strong with approximately 4 on a scale of 5 on the left with graining operator strength and 5/5 on the right. Peripheral pulses are 2+ radial distribution. No peripheral edema is noted. Options were discussed with the patient. The patient's old chart was reviewed as her current medication regimen updated. Current review of systems updated today as well and we will proceed with trigger point injections of the aforementioned musculature. Risks were discussed including but not limited to bleeding, infection, possibility of intravascular injection sequelae, spread of local anesthetic and numbness, side effects of steroid medication as well as poor results regarding pain control. The patient understands and wished to proceed. The patient will return to clinic in approximately 2 weeks for followup, was counseled as to return appointment, activity level and side effects to be aware of. The patient given refill prescription for hydrocodone as well as she has done quite well with this, has appropriate K-TRACS reporting as well as appropriate urinalysis to date. DIAGNOSIS: Myofascial pain. PROCEDURE: Trigger point injections, left cervical paraspinous musculature, left trapezius, left rhomboid and thoracic paraspinous musculature under sterile prep and drape using local anesthetic. MEDICATION INJECTED: A total of 8 mL of 0.25% bupivacaine and total of 40 mg of Depo-Medrol. CONDITION AT DISCHARGE: Stable. The patient tolerated the procedure well, had no complications. CARL CHAPARRO MD DR: JOSEPH/kayla JOB#: [id number] / [id number]
== END | disposition home or self-care (01) ==
LOC: PNCL 07:38
PROVIDERS: ATTEND Anesthesiology
DX: M79.18 Myalgia, other site (principal); M47.22 Other spondylosis with radiculopathy, cervical region; M50.10 Cervical disc disorder with radiculopathy, unspecified cervical region
CPT/HCPCS: 20553; J1030; J3490

== ENCOUNTER → 2018-10-28 | Outpatient (CLI) | payer OTHER ==
[~2018-10-28] MED LIST changes: -BUPIVACAINE MPF 0.25% 10 ML VIAL. ONE; +IOHEXOL 180 MG/ML 10 ML VIAL. ONE; +methylPREDNISolone ACETATE 80 MG/ML VIAL. ONE
--- NOTE | 2018-10-29 00:25 | PAIN ---
DATE OF SERVICE: 10/28/2018 DIAGNOSIS: Cervical radiculopathy with cervical degenerative disk disease, cervical spondylosis and cervicalgia. HISTORY OF PRESENT ILLNESS: This is a 58-year-old female who returns for followup status post cervical epidural steroid injection x 1 in 08/21/2009, also trigger point injections on 09/17/2018. The patient reports she did very well, about 60% improvement after the last injection, still some pain returning now over the past few weeks with activity in the left upper extremity, shoulder, posterior deltoid as well as into the triceps with some numbness and tingling in the hand as well as a burning pain that is sharp, described as tight, shooting at times; rated as 6 on a scale 10 at its worst, 3 on average, 2 at its least and is 3 today. The patient reports no new motor or sensory deficits, worse with activity using her left arm with repetitive motions, lifting items reaching over her head. The patient reports no new motor or sensory deficits, no new bowel or bladder incontinence. PHYSICAL EXAMINATION: VITAL SIGNS: The patient's blood pressure is 134/83, pulse 81, respirations 18, temperature 98.1 degrees Fahrenheit, height is 5 feet 1 inch, weight is 143 pounds. GENERAL: The patient is awake, alert, oriented, appropriate, very pleasant demeanor. HEENT: Head shows normocephalic, atraumatic. Extraocular muscles are intact and symmetrical. Oral cavity: Mucous membranes moist and pink. Dentition is intact. NECK: Shows anterior throat supple without palpable lymphadenopathy noted. Swallow reflex is symmetrical. CHEST: Shows normal on inspection. Breath sounds are clear to auscultation bilaterally. HEART: Shows S1, S2 clear. No murmurs auscultated. ABDOMEN: Soft, nontender, nondistended. No palpable organomegaly is noted. No rebound or guarding demonstrated. BACK: Shows spine grossly in the midline. Cervical paraspinous muscle shows symmetrical on inspection, on palpation shows some moderate tenderness diffusely in the thoracic paraspinous musculature, more in the left than the right and superior medial trapezius, but without radiation, without trigger points. The patient has good rotational motion of cervical spine, both laterally as well as extension and flexion without significant difficulty or pain reported. EXTREMITIES: Upper extremities show deep tendon reflexes at 2+ in the biceps and triceps tendons. 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 Peripheral pulses are 2+ radial distribution. No peripheral edema is noted bilaterally. Options were discussed with the patient. The patient's old chart was reviewed as well as her current medication regimen updated. Current review of systems updated today as well. We will proceed with a second in a series of cervical epidural steroid injection today with fluoroscopic guidance. Risks were again discussed including, but not limited to bleeding, infection, possibility of epidural hematoma and subsequent neurological compromise, dural puncture, headaches, spinal cord and/or nerve damage, side effects of steroid medication and poor results regarding pain control. The patient understands and wishes to proceed. The patient will return to clinic in approximately 2 weeks for followup, was counseled on return appointment, activity level and side effects to be aware of. DIAGNOSIS: Cervical radiculopathy with cervical degenerative disk disease and cervical spondylosis. PROCEDURE: Cervical epidural steroid injection, translaminar approach at C6-C7 level using C-arm fluoroscopic guidance under sterile prep and drape using local anesthetic. MEDICATION INJECTED: A total of 120 mg Depo-Medrol plus 5 mL of preservative-free normal saline and 2 mL of contrast. CONDITION AT DISCHARGE: Stable. The patient tolerated the procedure well, had no complications. CARL CHAPARRO MD DR: JOSEPH/kayla JOB#: [id number] / [id number]
== END | disposition home or self-care (01) ==
LOC: PNCL 07:30
PROVIDERS: ATTEND Anesthesiology
DX: M50.123 Cervical disc disorder at C6-C7 level with radiculopathy (principal); M47.22 Other spondylosis with radiculopathy, cervical region
CPT/HCPCS: 62321; J1030; J1040; Q9965